=== PATIENT | female | born 1975 | race Caucasian/White ===

== ENCOUNTER → 2024-06-19 19:31 | Outpatient (REF) | payer BC, SELFPAY | LOC: WDC 19:31 | PROVIDERS: ATTENDING PHYSICIAN Physician Assistant Medical | DX: Z12.31 Encounter for screening mammogram for malignant neoplasm of breast (principal) | CPT/HCPCS: 77063; 77067 ==

== ENCOUNTER → 2024-07-07 08:06 | Outpatient (REF) | payer BC, SELFPAY | LOC: MRI 08:06 | PROVIDERS: ATTENDING PHYSICIAN Otolaryngology; FAMILY PHYSICIAN Physician Assistant Medical | DX: H90.41 Sensorineural hearing loss, unilateral, right ear, with unrestricted hearing on the contralateral side (principal) | CPT/HCPCS: 70553; A9575 ==

== ENCOUNTER 2024-07-07 23:33 | Emergency (ER) | payer BC, SELFPAY ==
[2024-07-07 23:35] VITALS: BP 170/110
[2024-07-08 03:05] VITALS: BP 142/103
[2024-07-08 03:06] VITALS: BMI 40.5
[2024-07-08 03:28] LABS: INR 0.89; PT 12.5 Sec (11.4-14.6)
[2024-07-08 03:29] LABS: APTT 32.5 Sec (23.4-35.0)
[2024-07-08 03:32] LABS: % Basophils 0.6 % (0-2); % Eosinophils 5.5 % (0-6); % Immature Granulocytes 0.5 % (0-0.5); % Lymphocytes 25.9 % (20.5-51.1); % Monocytes 11.1 % (1.7-9.3); % Neutrophils 56.4 % (42.2-75.2); Absolute Basophils 0.1 10^3/uL (0-0.2); Absolute Eosinophils 0.5 10^3/uL (0-0.7); Absolute Lymphocytes 2.1 10^3/uL (1.2-3.4); Absolute Monocytes 0.9 10^3/uL (0.1-0.6); Absolute Neutrophils 4.6 10^3/uL (1.4-6.5); Hematocrit 44.1 % (37.0-47.0); Hemoglobin 14.6 g/dL (12.0-16.0); Mean Corp Hgb Conc. 33.1 g/dL (33.0-37.0); Mean Corpuscular Volume 87.5 fL (81.0-99.0); Mean Platelet Volume 10.1 fL (7.4-10.4); Nucleated Red Blood Cells % 0.4 %; Platelet Count 242 10^3/uL (130-400); Red Blood Cell Count 5.04 10^6/uL (4.20-5.40); Red Cell Dist. Width 13.2 % (11.5-14.5); White Blood Cell Count 8.1 10^3/uL (4.8-10.8)
[2024-07-08 03:41] LABS: Lactic Acid 1.6 mmol/L (0.7-2.0)
[2024-07-08 03:43] LABS: ALT (SGPT) 26 U/L (0-35); AST (SGOT) 29 U/L (14-36); Albumin 4.2 g/dl (3.5-5.0); Alkaline Phosphatase 82 U/L (38-126); Blood Urea Nitrogen 11 mg/dl (7-17); Calcium 9.1 mg/dl (8.4-10.2); Carbon Dioxide 26 mmol/L (22-30); Chloride 102 mmol/L (98-107); Estimated Creatinine Clearance 101 ml/min; Glucose 95 mg/dl (70-99); Sodium 139 mmol/L (135-145); Total Bilirubin 0.4 mg/dl (0.2-1.3); Total Protein 6.9 g/dl (6.3-8.2); eGFR > 60.00
[2024-07-08 03:45] VITALS: BP 143/89
[2024-07-08 03:48] LABS: Urine Albumin Trace (Neg - Trace); Urine Bilirubin Negative (Negative); Urine Character Clear (Clear); Urine Color Yellow; Urine Glucose Negative (Negative); Urine Ketone 1+ (Negative); Urine Leukocyte Negative (Negative); Urine Nitrite Negative (Negative); Urine Occult Blood Negative (Negative); Urine Urobilinogen Negative (Neg - 1+)
--- NOTE | 2024-07-08 03:52 | EDRN ---
Pt got vaccinations for upcoming trip one of which was a live vaccine due to outbreaks in [place]. Pt also got polio booster and typhoid vaccine. Two days later pt felt sob but pt was on prednisone at that time for stuffy ear. Pt was on
prednisone for four days, 60mg. Pt thought sob related to high dose prednisone. After steroid, pt says she found out she should not have been on a steroid after getting live vaccine. Pt had achy joints/body for 2 days. Pt had mild now severe
diarrhea, feels like she has a fast heart rate, fatigue, dizziness. Pt says it has been hard to eat and drink at home because she gets triggered to go to the bathroom. Pt not sleeping well. Pt was taking shower last night and while rinsing, blood
came out and she noted a blood clot. Pt assumes clot came out of her vagina but is not sure. No more bleeding since shower or prior to. Pt has occasional crampy stomach pain. No cp, n/v, fever/chills/cough.
[2024-07-08 03:56] LABS: HCG, Urine Qualitative Screen Negative
[2024-07-08 04:00] VITALS: BP 134/88
--- NOTE | 2024-07-08 04:30 | ED.GENMED ---
History of Present Illness
General
Chief Complaint: Medication Reaction
Source: patient
Exam Limitations: none
Time Seen by Provider: 07/08/24 03:23
Nursing documentation reviewed up to this point in time: agreed with
History of Present Illness
History of Present Illness:
Pleasant 48-year-old female presents to the emergency department with muscle aches, lower abdominal cramping and diarrhea. She states that she took a shower tonight and had a blood clot either per rectum or per vagina. She denies any pain
associated with that. Patient is due to travel to [facility] and had her travel vaccinations on the . She states that she has been having symptoms since. She was seen by her primary care provider when the symptoms began and had negative workup.
Denies fever, chills, nausea or vomiting. Reports no chest pain or shortness of breath.
Past History
Past History
ED Past Medical History: Asthma and Other (IBS)
ED Past Surgical History: Orthopedic
Social History
Tobacco: Non-smoker
Drug: None
Living: with family
Employment: Employed
Family History
Family History: Other (Noncontributory)
Review of Systems
Review of Systems
Allergies reviewed?: Yes
All Other Systems: ROS reviewed and negative except as documented in HPI and ROS
Constitutional: Reports no symptoms
EENT: Reports no symptoms
Respiratory: Reports no symptoms
Cardiac: Reports no symptoms
ABD/GI: Reports pain
: Reports no symptoms
Musculoskeletal: Reports no symptoms
Skin: Reports no symptoms
Neurological: Reports no symptoms
Endocrine: Reports no symptoms
Hematologic/Lymphatic: Reports no symptoms
Psychiatric: Reports no symptoms
Phy Exam
General Physical Exam
General Presentation: well appearing and no apparent distress
General Skin: warm and dry
General Habitus: normal
General Mental: alert
General Hydration: appears well hydrated
ENT Exam
ENT Exam: EOMI, pharynx normal, neck supple and normocephalic
Eye Exam
Eye Exam: PERRL, cornea clear and conjunctiva normal
Cardiovascular Exam
Cardiovascular Exam: regular rate/rhythm, no edema, no murmur and normal peripheral pulses
Pulmonary Exam
Pulmonary Exam: lungs clear, no respiratory distress, no rales, no crackles, no rhonchi, no stridor, no wheezing and no cough
Gastrointestinal Exam
Gastrointestinal Exam: normal bowel sounds, non tender, soft, no organomegaly, no pulsatile mass and non distended
Neurological Exam
Neurological Exam: alert, oriented x3, no motor deficits and speech normal
Musculoskeletal Exam
Musculoskeletal Exam: full ROM and no edema
Skin Exam
Skin Exam: normal color, warm/dry, no rash and no petechia
Psychiatric Exam
Psychiatric Exam: normal mood/affect
Course
Orders/Labs/Results
Orders:
Orders
07/08/24 02:38
Test Result ONCE
07/08/24 03:03
CRP [C-Reactive Protein] Urgent
Complete Blood Count/With Diff Urgent
Comprehensive Metabolic Panel Urgent
Lactic Acid Urgent
PTT Urgent
Prothrombin Time Urgent
07/08/24 03:41
HCG, Urine Qualitative Screen Urgent
Date Specimen was Collected: 07/08/24
Time Specimen was Collected: 02:52
Urinalysis Reflex To Culture Urgent
Date Specimen was Collected: 07/08/24
Time Specimen was Collected: 02:52
07/08/24 04:25
US Pelvis Transvaginal Only Urgent
Comment:
Reason For Exam: cramping
Abnormal Lab Results
07/08/24 07/08/24
03:03 03:41
Absolute Monos (auto) 0.9 H 10^3/uL
(0.1-0.6)
Monocytes % 11.1 H %
(1.7-9.3)
Urine Ketones 1+ A
(Negative)
07/08/24 03:03
07/08/24 03:03
Vital Signs
Initial and Last Documented VS:
Initial Vital Signs
Temp Pulse Resp BP Pulse Ox
98.4 F 94 20 170/110 100
07/07/24 23:35 07/07/24 23:35 07/07/24 23:35 07/07/24 23:35 07/07/24 23:35
Last Documented Vital Signs
Temp Pulse Resp BP Pulse Ox
98.4 F 69 14 113/69 98
07/07/24 23:35 07/08/24 06:14 07/08/24 03:45 07/08/24 06:14 07/08/24 06:14
*Critical Care Note
Total Time (30-74mins, 75-104mins- exclusive of procedures): Not Applicable
Update Note
Update Note:
US pelvis
Comparison: No relevant prior imaging
IMPRESSION:
�Anteverted uterus. No myometrial mass. Unremarkable endometrium, with bilayer measuring 9 mm.
�Right ovary measures up to 3.4 cm. Nonedematous stroma. Small dominant follicle measures 1.1 cm. Normal arterial and venous flow on spectral Doppler. No paraovarian mass.
�Left ovary measures up to 1.6 cm. Nonedematous stroma. Normal arterial and venous flow on spectral Doppler. No paraovarian mass.
�No significant free fluid in the pelvic cul-de-sac.
Discussed ultrasound with patient patient is feeling better. No bleeding. She will follow-up with us. Return. Patient has no further questions. Being discharged in improved condition
ED Attending Note
-
Portions of this chart may have been created with voice recognition software.� Occasional wrong word or��sound alike� substitutions may have occurred due to the inherent limitations of voice recognition software.
Discharge Plan
Departure
Patient Disposition: Home (Routine Discharge)
Date of Disposition: 07/08/24
Time of Disposition: 06:29
Patient with high blood pressure during this ER visit?: No
Discharge Problem:
Medication reaction
Instructions: Adverse Drug Reactions, Adult ED
Prescriptions:
No Action
Adrenal Cocktail Powder
1 PO DAILY
Patient Comments:
1 scoop
multivitamin Tablet
1 tab PO DAILY
vitamin B complex Capsule
1 cap PO DAILY
Qvar RediHaler 80 mcg/actuation Hfa Aerosol Breath Activated
2 inh INHALATION BID
Calcium And Magnesium
2 tab PO DAILY
L-Threonine
2 cap PO DAILY
Rex Spore
1 cap PO DAILY
Metabolic Synergy
3 cap PO BID
[place] Annelise D3
1 cap PO DAILY
Saccharomyces boulardii
1 cap PO DAILY
Sun Fiber
1 PO DAILY
Patient Comments:
1 scoop
Zenbiome Dual
2 cap PO DAILY
Referrals:
Dominique Cordova PA-C [Family Provider] -
Activity Restrictions/Additional Instructions:
It was a pleasure meeting you and taking part in your care. We hope for your continued healing and wellness.
Please read discharge instructions in their entirety. However, they are for general education and may not describe your exact diagnosis at discharge. Information on your ER visit and medical conditions were discussed with you along with appropriate
follow up information...
If indicated, please take your medications as instructed and indicated on discharge paperwork.
Please schedule a follow up appointment as directed. Call to schedule an appointment
Please return to the emergency department with ANY change in, persisting, or worsening of symptoms. If any of your symptoms do not improve, or persist, or become more severe within 6-12 hours, please return to the emergency department for further
care.
Please return to the emergency department if you develop a headache, neck pain/stiffness, fever greater than 100.4F, chest pain, shortness of breath, persistent nausea, vomiting, slurred speech, difficulty walking, numbness/tingling, weakness, signs
of infection or any other symptoms that are worrisome to you.
If you have any questions or concerns please do not hesitate to call the Hospital at or E-mail me directly at [email or web address]
Interventions
Interventions:
*Risk Screen - Suicide Last Done: 07/07/24 23:35
*General Assessment Last Done: 07/08/24 03:07
*Neglect/Abuse Screening Last Done: 07/07/24 23:35
ED- Fall Risk Assessment Last Done: 07/08/24 03:07
*ED COVID-19 Vaccine History Last Done: 07/08/24 03:07
ED-Skin Assessment Last Done: 07/08/24 04:02
ED- Pulmonary Assessment Last Done: 07/08/24 04:02
ED-EENT Assessment Last Done: 07/08/24 03:07
Discharge Date and Time
Print Language: VENEZUELAN
[2024-07-08 06:14] VITALS: BP 113/69
== END 2024-07-08 06:52 | disposition home or self-care (01) ==
LOC: EMR 23:33
PROVIDERS: EMERGENCY PHYSICIAN Student in an Organized Health Care Education/Training Program; FAMILY PHYSICIAN Physician Assistant Medical
DX: T50.905A Adverse effect of unspecified drugs, medicaments and biological substances, initial encounter (principal); X58.XXXA Exposure to other specified factors, initial encounter; M79.10 Myalgia, unspecified site; J45.909 Unspecified asthma, uncomplicated; K58.0 Irritable bowel syndrome with diarrhea
CPT/HCPCS: 99284; 76830; 80053; 81003; 81025; 83605; 85025; 85610; 85730; 86140

== ENCOUNTER → 2024-09-20 14:53 | Outpatient (REF) | payer BC, SELFPAY | LOC: RAD 14:53 | PROVIDERS: ATTENDING PHYSICIAN Physician Assistant Medical | DX: R05.9 Cough, unspecified (principal); D72.829 Elevated white blood cell count, unspecified; R07.81 Pleurodynia | CPT/HCPCS: 71046 ==

== ENCOUNTER → 2024-09-27 09:29 | Outpatient (REF) | payer BC, SELFPAY | LOC: HWRAD 09:29 | PROVIDERS: ATTENDING PHYSICIAN Nurse Practitioner; FAMILY PHYSICIAN Physician Assistant Medical | DX: R10.12 Left upper quadrant pain (principal) | CPT/HCPCS: 76700 ==

== ENCOUNTER → 2025-06-20 13:45 | Outpatient (REF) | payer BC, SELFPAY | LOC: WDC 13:45 | PROVIDERS: ATTENDING PHYSICIAN Physician Assistant Medical | DX: Z12.31 Encounter for screening mammogram for malignant neoplasm of breast (principal) | CPT/HCPCS: 77063; 77067 ==